=== PATIENT | male | born 1950 | race African-American/Black ===

== ENCOUNTER 2019-07-29 11:45 | Outpatient (CLI) | payer OTHER ==
[~2019-07-29] VITALS: Ht 182.9 cm; Wt 111.1 kg
== END 2019-07-29 13:54 | disposition home or self-care (01) ==
LOC: OFIC 805 11:45
DX: H91.8X3 Other specified hearing loss, bilateral (principal); H61.23 Impacted cerumen, bilateral

== ENCOUNTER 2019-11-25 10:42 | Outpatient (CLI) | payer OTHER ==
[~2019-11-25] VITALS: Ht 182.9 cm; Wt 111.1 kg
== END 2019-11-25 13:03 | disposition home or self-care (01) ==
LOC: OFIC 805 10:42
PROVIDERS: ATTEND Otolaryngology
DX: H90.3 Sensorineural hearing loss, bilateral (principal); H61.23 Impacted cerumen, bilateral

== ENCOUNTER 2020-05-08 08:27 | Outpatient (CLI) | payer OTHER | END 2020-05-08 12:58 | disposition home or self-care (01) | LOC: OFIC 805 08:27 | PROVIDERS: ATTEND Otolaryngology | DX: H90.3 Sensorineural hearing loss, bilateral (principal); H61.23 Impacted cerumen, bilateral ==